=== PATIENT | female | born 1970 | race Two or more races ===

== ENCOUNTER 2022-04-08 23:18 | Emergency (ER) | payer BC ==
[~2022-04-08] VITALS: Ht 175.3 cm; Wt 101.8 kg
[2022-04-09 02:51] VITALS: BP 126/86
== END 2022-04-09 03:39 | disposition left against medical advice (07) ==
LOC: ER 23:18
DX: M79.89 Other specified soft tissue disorders (principal); Z53.21 Procedure and treatment not carried out due to patient leaving prior to being seen by health care provider
CPT/HCPCS: 73610